=== PATIENT | male | born 1985 | race Caucasian/White ===

== ENCOUNTER 2024-05-28 14:46 | Emergency (ER) | payer OTHER ==
[~2024-05-28] VITALS: Ht 180.3 cm; Wt 86.2 kg
[2024-05-28] MEDS: TDAP [DIPH/PERTUSSIS/TET] 0.5 ML VIAL IM ONE (15:30)
[2024-05-28] MEDS ORDERED: TDAP [DIPH/PERTUSSIS/TET] 0.5 ML VIAL IM ONE (15:37)
[2024-05-28] MEDS ORDERED: LIDOCAINE HCL/MPF 1% 30 ML VIAL IJ ONE (15:38)
[2024-05-28 17:59] VITALS: BP 141/91; TEMP 98.5; O2SAT 100
== END 2024-05-28 18:00 | disposition home or self-care (01) ==
LOC: ER 14:55
DX: L03.113 Cellulitis of right upper limb (principal); M79.641 Pain in right hand
CPT/HCPCS: 99283; 10060; 90471; 90715; 73130; A6403; J3490; A4223